=== PATIENT | female | born 1970 | race Caucasian/White ===

== ENCOUNTER 2020-07-21 10:14 | Outpatient (CLI) | payer BC, SELFPAY | END 2020-07-21 10:15 | disposition home or self-care (01) | LOC: CHSCOVIDVC 10:14 | DX: Z23 Encounter for immunization (principal) | CPT/HCPCS: 0011A; 91301 ==

== ENCOUNTER 2020-08-18 10:03 | Outpatient (CLI) | payer BC, SELFPAY | END 2020-08-18 10:04 | disposition home or self-care (01) | LOC: CHSCOVIDVC 10:04 | DX: Z23 Encounter for immunization (principal) | CPT/HCPCS: 0012A; 91301 ==